=== PATIENT | male | born 1975 | race Two or more races ===

== ENCOUNTER 2017-09-23 14:09 | Emergency (ER) | payer OTHER ==
[2017-09-23 14:22] VITALS: BP 130/85
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
--- NOTE | 2017-09-23 23:12 | EKG REPORT ---
SEVERITY:- BORDERLINE ECG - SINUS RHYTHM PROBABLE LEFT ATRIAL ABNORMALITY CONSIDER INFERIOR INFARCT : Confirmed by: Rima Ellington 23-Sep-2017 23:11:45
== END 2017-09-23 16:10 | disposition home or self-care (01) ==
LOC: ER 14:09
DX: R07.9 Chest pain, unspecified (principal); R07.81 Pleurodynia; W50.0XXA Accidental hit or strike by another person, initial encounter; Y92.512 Supermarket, store or market as the place of occurrence of the external cause; F17.210 Nicotine dependence, cigarettes, uncomplicated; Z71.6 Tobacco abuse counseling
CPT/HCPCS: 71046; 93005; 93010; 99284

== ENCOUNTER → 2019-01-24 | Outpatient (CLI) | payer OTHER ==
--- NOTE | 2019-01-24 16:54 | RADIOLOGY REPORT (SQ) ---
EXAM DESCRIPTION: MRI LUMBAR SPINE WITHOUT COMPLETED DATE/TIME: 01/24/2019 12:52 pm REASON FOR STUDY: LUMBAR RADICULOPATHY COMPARISON: None. TECHNIQUE: Sagittal and Axial imaging includes T1, T2, STIR and gradient echo sequences. Coronal T2/ HASTE imaging. LIMITATIONS: None. FINDINGS: VISUALIZED UPPER ABDOMEN: Limited evaluation. No acute or suspicious findings suggested. SEGMENTATION: No transitional anatomy. The lowest well-developed disc space is labeled L5-S1. ALIGNMENT: Anatomic. VERTEBRAE: Intact. BONE MARROW: Reactive marrow changes are present at L5. DISC SIGNAL: Normal. No significant abnormal signal or loss of height. POSTERIOR ELEMENTS: Generally intact. No pars defect evident. HARDWARE: Posterior rods at L5-S1 with screws through the pedicles. CORD AND CONUS: Normal in size and signal intensity. Conus at the L1 level. SOFT TISSUES: No aortic aneurysm seen. No bulky retroperitoneal adenopathy or mass. No paraspinal mas s or fluid. L1-L2: No significant spinal stenosis or exit foraminal stenosis. L2-L3: Mild concentric disc bulging with no central canal or foraminal stenosis. L3-L4: No significant spinal stenosis or exit foraminal stenosis. L4-L5: Circumferential disc bulging slightly asymmetrical to the left. Disc appears to contact the e xiting nerve root outside of the neural foramen. No central stenosis. L5-S1: Shallow disc/ osteophyte complex slightly more prominent on the left. LOWER THORACIC: Incompletely imaged. No stenosis seen. SACRUM: Visualized upper sacrum intact. OTHER: No other significant findings. IMPRESSION: Surgical changes. Mild disc bulging at L2-3 with no significant stenoses. Slightly asy mmetrical disc bulging at L4-5 that may contact the exiting nerve root outside of the neural foramen. Shallow disc/ osteophyte complex at L5-S1 slightly asymmetrical to the left. TECHNICAL DOCUMENTATION: JOB ID: [id number] [employer]- All Rights Reserved Reading location - IP/workstation name: [email or web address]
== END ==
LOC: RAD 12:01
PROVIDERS: ATTEND Physician Assistant
DX: M54.16 Radiculopathy, lumbar region (principal)
CPT/HCPCS: 72148